=== PATIENT | male | born 1935 | race Caucasian/White ===

== ENCOUNTER 2016-08-12 08:35 | Emergency (ER) | payer MEDICARE, OTHER ==
[2016-08-12 09:36] LABS: BASO % 0.3 % (0.2-1.2); EOS # 0.1 10_X3_uL (0.0-0.5); EOS % 1.7 % (0.8-7.0); GRAN # 4.2 10_X3_uL (1.8-5.4); HEMATOCRIT 38.8 % (40-51); HEMOGLOBIN 13.5 g/dL (13.7-17.5); LYMPH # 1.5 10_X3_uL (1.3-3.6); LYMPH % 22.9 % (21.8-53.1); MEAN CORPUSCULAR HEMOGLOBIN 32.1 pg (27.0-33.0); MEAN CORPUSCULAR HGB CONC 34.8 g/dL (32.0-36.0); MEAN CORPUSCULAR VOLUME 92.2 fL (79-92); MEAN PLATELET VOLUME 10.2 fl (7.5-11.5); MONO # 0.5 10_X3_uL (0.3-0.8); MONO % 8.1 % (5.3-12.2); PLATELET COUNT 154 x10_3/uL (163-337); RED BLOOD COUNT 4.21 x10_6/uL (4.6-6.1); RED CELL DISTRIBUTION WIDTH 13.3 % (11.6-14.4); WHITE BLOOD COUNT 6.3 x10_3/uL (4.2-9.1)
[2016-08-12 09:45] LABS: ALBUMIN 3.7 gm/dL (3.4-5.0); BILIRUBIN,TOTAL 0.41 mg/dL (0.0-1.0); CALCIUM 8.1 mg/dL (8.7-10.7); CREATININE 1.4 mg/dL (0.6-1.3); POTASSIUM 3.8 mmol/L (3.5-5.1); TOTAL PROTEIN 6.6 gm/dL (6.4-8.2)
== END 2016-08-12 10:41 | disposition home or self-care (01) ==
LOC: ER 08:35
PROVIDERS: Internal Medicine
DX: K52.9 Noninfective gastroenteritis and colitis, unspecified (principal); R11.2 Nausea with vomiting, unspecified; R19.7 Diarrhea, unspecified; E11.9 Type 2 diabetes mellitus without complications; J44.9 Chronic obstructive pulmonary disease, unspecified; I25.10 Atherosclerotic heart disease of native coronary artery without angina pectoris; Z95.5 Presence of coronary angioplasty implant and graft; Z95.0 Presence of cardiac pacemaker; Z79.4 Long term (current) use of insulin; Z79.82 Long term (current) use of aspirin; Z79.899 Other long term (current) drug therapy
CPT/HCPCS: 36415; 80053; 85025; 96361; 96374; 99070; 99283; 99283-25; G0328-QW